=== PATIENT | female | born 1985 | race Caucasian/White ===

== ENCOUNTER 2022-09-16 13:00 | Outpatient (RCR) | payer OTHER, SELFPAY | END 2022-10-06 13:27 | disposition home or self-care (01) | LOC: HO.PT 13:00 | PROVIDERS: PCP Family Medicine; Visit Provider Obstetrics & Gynecology | DX: R10.2 Pelvic and perineal pain (principal); N94.10 Unspecified dyspareunia | CPT/HCPCS: 97112; 97140; 97161 ==

== ENCOUNTER 2023-03-16 13:00 | Outpatient (RCR) | payer OTHER, SELFPAY | END 2023-04-08 14:10 | disposition home or self-care (01) | LOC: HO.PT 13:00 | PROVIDERS: Visit Provider Obstetrics & Gynecology | DX: M54.50 Low back pain, unspecified (principal); R15.9 Full incontinence of feces; R32 Unspecified urinary incontinence | CPT/HCPCS: 97112; 97140; 97162 ==